=== PATIENT | female | born 1995 | race Two or more races ===

== ENCOUNTER 2023-04-27 18:42 | Emergency (ER) | payer MEDICAID, OTHER ==
[~2023-04-27] VITALS: Ht 157.5 cm; Wt 57.3 kg
[2023-04-27] MEDS ORDERED: IBUPROFEN 600 MG TAB PO ONE (19:30)
[2023-04-27 22:34] LABS: COVID19 ANTIGEN SOFIA FIA NEGATIVE (NEGATIVE)
[2023-04-27 22:35] LABS: Rapid Influenza A Negative (Negative); Rapid Influenza B Negative (Negative)
[2023-04-27] MEDS ORDERED: AMOX500C2 PO (23:09)
[2023-04-28 00:04] VITALS: BP 95/59; PULSE 72; RESP 16; O2SAT 98
[2023-04-28 00:05] VITALS: TEMP 98.8
== END 2023-04-28 00:16 | disposition home or self-care (01) ==
LOC: ER 18:42
DX: J02.0 Streptococcal pharyngitis (principal); M79.10 Myalgia, unspecified site; Z20.822 Contact with and (suspected) exposure to COVID-19
CPT/HCPCS: 36415; 87426; 87804